=== PATIENT | female | born 1985 | race Caucasian/White ===

== ENCOUNTER 2018-06-02 09:24 | Inpatient (IN) | payer SELFPAY ==
--- NOTE | 2018-06-02 10:35 | HP ---
CIWA Score Nausea/Vomitin Muscle Tremors: 2 Anxiety: 2 Agitation: 2 Paroxysmal Sweats: 1-Minimal Palms Moist Orientation: 0-Oriented Tacttile Disturbances: 1-Very Mild Itch/Numbness Auditory Disturbances: 1-Very Mild Visual Disturbances: 0-None Headache: 2-Mild CIWA-Ar Total Score: 13 - Admission Criteria OASAS Guidelines: Admission for Medically Managed Detox: Requires at least one of the followin. CIWA greater than 12 2. Seizures within the past 24 hours 3. Delirium tremens within the past 24 hours 4. Hallucinations within the past 24 hours 5. Acute intervention needed for co occurring medical disorder 6. Acute intervention needed for co occurring psychiatric disorder 7. Severe withdrawal that cannot be handled at a lower level of care (continued vomiting, continued diarrhea, abnormal vital signs) requiring intravenous medication and/or fluids 8. Patient presents the following: CIWA greater than 12 Admission Criteria Met: Admission criteria met Admission ROS BHS - HPI Chief Complaint: i need help to stop drinking alcohol,cocaine,heroin Allergies/Adverse Reactions: Allergies Allergy/AdvReac Type Severity Reaction Status Date / Time No Known Allergies Allergy Verified 06/02/18 10:30 History of Present Illness: this 32 years old female with alcohol,cocaine and heroin abused,withdrawal symptom,need help to stop,last treatment in 2016, did not recall facility syncope last night ,seen in [facility] nicotine dependence no significant period of sobrietyl seen in [place] last night - Ebola screening Have you traveled outside of the country in the last 21 days: No (N) Have you had contact with anyone from an Ebola affected area: No Do you have a fever: No - Review of Systems Constitutional: Chills, Loss of Appetite, Malaise, Night Sweats, Changes in sleep, Weakness, Unintentional Wgt. Loss EENT: reports: Nose Congestion Respiratory: reports: No Symptoms reported Cardiac: reports: Palpitations GI: reports: Nausea, Poor Appetite, Vomiting, Abdominal cramping : reports: No Symptoms Reported Musculoskeletal: reports: No Symptoms Reported Integumentary: reports: Dryness Neuro: reports: Headache, Tremors Endocrine: reports: No Symptoms Reported Hematology: reports: No Symptoms Reported Psychiatric: reports: No Sypmtoms Reported, Judgement Intact, Mood/Affect Appropiate, Orientated x3, Agitated, Anxious Other Systems: Reviewed and Negative Patient History - Patient Medical History Hx Anemia: No Hx Asthma: No Hx Chronic Obstructive Pulmonary Disease (COPD): No Hx Cancer: No Hx Cardiac Disorders: No Hx Congestive Heart Failure: No Hx Hypertension: No Hx Hypercholesterolemia: No Hx Pacemaker: No HX Cerebrovascular Accident: No Hx Seizures: No Hx Dementia: No Hx Diabetes: No Hx Gastrointestinal Disorders: No Hx Liver Disease: No Hx Genitourinary Disorders: No Hx Sexually Transmitted Disorders: No Hx Renal Disease (ESRD): No Hx Thyroid Disease: No Hx Human Immunodeficiency Virus (HIV): No (2016 negative) Hx Hepatitis C: No Hx Depression: No Hx Suicide Attempt: No Hx Bipolar Disorder: No Hx Schizophrenia: No Other Medical History: no suicidal,no homicidal - Patient Surgical History Past Surgical History: No - PPD History Previous Implant?: Yes Documented Results: Negative w/o proof Implanted On Prior [facility] Admission?: No PPD to be Administered?: Yes - Reproductive History Patient is a Female of Child Bearing Age (11 -55 yrs old): Yes Last Menstrual Period: 05/11/18 Patient : No - Smoking Cessation Smoking history: Current every day smoker Have you smoked in the past 12 months: Yes Aproximately how many cigarettes per day: 20 Cigars Per Day: 0 Hx Chewing Tobacco Use: No Initiated information on smoking cessation: Yes 'Breaking Loose' booklet given: 06/02/18 - Substance & Tx. History Hx Alcohol Use: Yes Hx Substance Use: Yes Substance Use Type: Alcohol, Cocaine, Heroin Hx Substance Use Treatment: Yes (2016 not recall the facility) - Substances Abused Alcohol Route: Oral Frequency: Daily Amount used: 2pints of vodka/6 packs of 12 ozs of beer Age of first use: 13 Date of Last Use: 06/01/18 Cocaine Route: Inhalation Frequency: Daily Amount used: 200$ Age of first use: 13 Date of Last Use: 06/01/18 Heroin Route: Inhalation Frequency: 3-6 times per week Amount used: 1 bag Age of first use: 15 Date of Last Use: 06/01/18 Family Disease History - Family Disease History Family History: Denies Admission Physical Exam BHS - Vital Signs Vital Signs: Vital Signs Temperature 97.6 F 06/02/18 10:41 Pulse Rate 106 H 06/02/18 10:41 Respiratory Rate 18 06/02/18 10:41 Blood Pressure 113/76 06/02/18 10:41 O2 Sat by Pulse Oximetry (%) - Physical General Appearance: Yes: Moderate Distress, Tremorous, Irritable, Sweating, Anxious HEENTM: Yes: Normal ENT Inspection, CELE, Pharynx Normal Respiratory: Yes: Lungs Clear, Normal Breath Sounds, No Respiratory Distress Neck: Yes: Within Normal Limits, Supple, Trachea in good position Breast: Yes: Breast Exam Deferred Cardiology: Yes: Tachycardia Abdominal: Yes: Normal Bowel Sounds, Non Tender, Flat, Soft Genitourinary: Yes: Within Normal Limits Back: Yes: Within Normal Limits, Normal Inspection, Muscle Spasm Musculoskeletal: Yes: full range of Motion, Back pain, Muscle Pain Extremities: Yes: Within Normal Limits, Tremors Neurological: Yes: electronic warfare operator II-XII NML intact, Alert, Motor Strength 5/5 Integumentary: Yes: Dry Lymphatic: Yes: Within Normal Limits - Diagnostic (1) Alcohol dependence with uncomplicated withdrawal Current Visit: Yes Status: Acute (2) Cocaine dependence Current Visit: Yes Status: Acute (3) Heroin abuse Current Visit: Yes Status: Acute (4) Nicotine dependence Current Visit: Yes Status: Acute (5) Weight loss Current Visit: Yes Status: Acute Cleared for Admission S - Detox or Rehab S Level of Care: Medically Managed Detox Regimen/Protocol: Librium
[2018-06-02 10:46] VITALS: BMI 18.1
[2018-06-02] MEDS ORDERED: chlordiazePOXIDE HCL 25 MG CAPSULE PO PRN (10:46)
[2018-06-02] MEDS ORDERED: hydrOXYzine PAMOATE 25 MG CAPSULE (FP) PO PRN (10:47)
[2018-06-02] MEDS ORDERED: LOPERAMIDE HCL 2 MG CAPSULE PO PRN (10:47)
[2018-06-02] MEDS ORDERED: MAGNESIUM CITRATE 300 ML BOTTLE PO PRN (10:47)
[2018-06-02] MEDS ORDERED: MAGNESIUM HYDROX 2400MG/30ML ORAL SUSPENSION 30 ML CUP PO PRN (10:47)
[2018-06-02] MEDS ORDERED: NICOTINE POLACRILEX 2 MG GUM BUC PRN (10:47)
[2018-06-02] MEDS ORDERED: P-EPHED 60MG/TRIPROLIDI 2.5MG TABLET PO PRN (10:47)
[2018-06-02] MEDS ORDERED: MENTHOL/PHENOL 1 EACH UD MM PRN (10:47)
[2018-06-02] MEDS ORDERED: MAG HYDROX/AL HYDROX/SIMETH 30 ML UNIT-DOSE CUP PO PRN (10:47)
[2018-06-02] MEDS ORDERED: guaiFENesin/D-METHORPHAN HB 10 ML UNIT-DOSE CUPS PO PRN (10:47)
[2018-06-02] MEDS: NICOTINE 21 MG/24 HOURS TOPICAL PATCH TD SCH (12:24)
--- NOTE | 2018-06-02 17:08 | EKG ---
Test Reason : Blood Pressure : / mmHG Vent. Rate : 089 BPM Atrial Rate : 089 BPM P-R Int : 122 ms QRS Dur : 100 ms QT Int : 384 ms P-R-T Axes : 070 068 058 degrees QTc Int : 467 ms NORMAL SINUS RHYTHM NORMAL ECG NO PREVIOUS ECGS AVAILABLE Confirmed by MD CARMEN, NAJMA ([id number]) on 06/02/2018 5:07:00 PM Referred By: Confirmed By:NAJMA MORALES MD
[2018-06-02] MEDS: chlordiazePOXIDE HCL 25 MG CAPSULE PO SCH ×2 (17:11→22:57)
[2018-06-02] MEDS ORDERED: MELATONIN 5 MG TABLETS PO PRN (22:00)
[2018-06-02] MEDS ORDERED: cloNIDine HCL 0.1 MG TABLET PO SCH (22:00)
[2018-06-02] MEDS: THIAMINE HCL 100 MG TABLET (FP) PO SCH (22:57)
[2018-06-03] MEDS: CYCLOBENZAPRINE HCL 10 MG TABLET (FP) PO PRN ×3 (01:22→22:35)
[2018-06-03] MEDS: IBUPROFEN 400 MG TABLET (FP) PO PRN ×4 (01:22→22:33)
[2018-06-03] MEDS: chlordiazePOXIDE HCL 25 MG CAPSULE PO SCH ×4 (06:09→22:32)
[2018-06-03] MEDS: ACETAMINOPHEN 325 MG TABLET (FP) PO PRN ×3 (06:58→20:44)
[2018-06-03] MEDS ORDERED: METOPROLOL TARTRATE 50 MG TABLET (FP) PO SCH (10:00)
[2018-06-03 10:17] LABS: HEMATOCRIT 29.4 % (32.4-45.2); HEMOGLOBIN 9.9 GM/dL (10.7-15.3); MCH 28.3 pg (25.7-33.7); MCHC 33.7 g/dl (32.0-36.0); MEAN CELL VOLUME 84.1 fl (80-96); MEAN PLT VOLUME 8.1 fl (7.5-11.1); PLATELET COUNT 314 K/MM3 (134-434); RDW 17.2 % (11.6-15.6); WHITE BLOOD COUNT 6.4 K/mm3 (4.0-10.0)
[2018-06-03 10:29] LABS: ALBUMIN 3.2 g/dl (3.4-5.0); ALK PHOS 62 U/L (45-117); ANION GAP 9 MMOL/L (8-16); BILIRUBIN,TOTAL 0.1 mg/dL (0.2-1); BLOOD UREA NITROGEN 13 mg/dL (7-18); CALCIUM 8.8 mg/dL (8.5-10.1); CHLORIDE 106 mmol/L (98-107); CO2 24 mmol/L (21-32); CREATININE 0.8 mg/dL (0.55-1.3); GLUCOSE,RANDOM 91 mg/dL (74-106); SGOT/AST 27 U/L (15-37); SGPT/ALT 19 U/L (13-61); SODIUM 138 mmol/L (136-145); TOT PROT 6.2 g/dl (6.4-8.2)
[2018-06-03] MEDS ORDERED: amLODIPine BESYLATE 10 MG TABLET (FP) PO SCH (10:35)
[2018-06-03] MEDS: NICOTINE 21 MG/24 HOURS TOPICAL PATCH TD SCH (10:43)
[2018-06-03] MEDS: PRENATAL VITAMINS W/ FOLIC ACID TABLET (FP) PO SCH (10:43)
--- NOTE | 2018-06-03 13:43 | PN ---
[facility] CIWA - CIWA Score Nausea/Vomitin-Mild Nausea/No Vomiting Muscle Tremors: 3 Anxiety: 3 Agitation: 2 Paroxysmal Sweats: 1-Minimal Palms Moist Orientation: 1-Uncertain about Date Tacttile Disturbances: 0-None Auditory Disturbances: 0-None Visual Disturbances: 0-None Headache: 1-Very Mild CIWA-Ar Total Score: 12 S Progress Note (SOAP) Subjective: headaches tremor sweat restlessness anxiety Objective: 06/03/18 13:40 Vital Signs Temperature 97.7 F 06/03/18 13:30 Pulse Rate 95 H 06/03/18 13:30 Respiratory Rate 20 06/03/18 13:30 Blood Pressure 92/55 L 06/03/18 13:30 O2 Sat by Pulse Oximetry (%) Laboratory Last Values WBC 6.4 K/mm3 (4.0-10.0) 06/03/18 07:00 RBC 3.50 M/mm3 (3.60-5.2) L 06/03/18 07:00 Hgb 9.9 GM/dL (10.7-15.3) L 06/03/18 07:00 Hct 29.4 % (32.4-45.2) L 06/03/18 07:00 MCV 84.1 fl (80-96) 06/03/18 07:00 MCH 28.3 pg (25.7-33.7) 06/03/18 07:00 MCHC 33.7 g/dl (32.0-36.0) 06/03/18 07:00 RDW 17.2 % (11.6-15.6) H 06/03/18 07:00 Plt Count 314 K/MM3 (134-434) 06/03/18 07:00 MPV 8.1 fl (7.5-11.1) 06/03/18 07:00 Sodium 138 mmol/L (136-145) 06/03/18 07:00 Potassium 4.0 mmol/L (3.5-5.1) 06/03/18 07:00 Chloride 106 mmol/L (98-107) 06/03/18 07:00 Carbon Dioxide 24 mmol/L (21-32) 06/03/18 07:00 Anion Gap 9 MMOL/L (8-16) 06/03/18 07:00 BUN 13 mg/dL (7-18) 06/03/18 07:00 Creatinine 0.8 mg/dL (0.55-1.3) 06/03/18 07:00 Creat Clearance w eGFR > 60 (>60) 06/03/18 07:00 Random Glucose 91 mg/dL (74-106) 06/03/18 07:00 Calcium 8.8 mg/dL (8.5-10.1) 06/03/18 07:00 Total Bilirubin 0.1 mg/dL (0.2-1) L 06/03/18 07:00 AST 27 U/L (15-37) 06/03/18 07:00 ALT 19 U/L (13-61) 06/03/18 07:00 Alkaline Phosphatase 62 U/L (45-117) 06/03/18 07:00 Total Protein 6.2 g/dl (6.4-8.2) L 06/03/18 07:00 Albumin 3.2 g/dl (3.4-5.0) L 06/03/18 07:00 RPR Titer Nonreactive (NONREACTIVE) 06/03/18 07:00 lab noted anemia 06/03/18 13:42 Assessment: 06/03/18 13:43 withdrawal sx anemia Plan: continue detox ferrous sulfate supplement 325 mg po daily
[2018-06-03] MEDS: FERROUS SO4 325 MG TABLET (FP) PO SCH (15:25)
[2018-06-03] MEDS: THIAMINE HCL 100 MG TABLET (FP) PO SCH (22:32)
[2018-06-04] MEDS: ACETAMINOPHEN 325 MG TABLET (FP) PO PRN ×3 (00:15→11:34)
[2018-06-04] MEDS: chlordiazePOXIDE HCL 25 MG CAPSULE PO SCH ×2 (06:07→11:10)
[2018-06-04] MEDS: CYCLOBENZAPRINE HCL 10 MG TABLET (FP) PO PRN ×2 (07:11→16:24)
[2018-06-04] MEDS: IBUPROFEN 400 MG TABLET (FP) PO PRN ×2 (08:16→16:24)
--- NOTE | 2018-06-04 10:22 | PN ---
S CIWA - CIWA Score Nausea/Vomitin-Mild Nausea/No Vomiting Muscle Tremors: 2 Anxiety: 2 Agitation: 2 Paroxysmal Sweats: 1-Minimal Palms Moist Orientation: 0-Oriented Tacttile Disturbances: 0-None Auditory Disturbances: 0-None Visual Disturbances: 0-None Headache: 1-Very Mild CIWA-Ar Total Score: 9 BHS Progress Note (SOAP) Subjective: tremor sweat restlessness headaches Objective: 06/04/18 10:21 Vital Signs Temperature 98.5 F 06/04/18 09:29 Pulse Rate 126 H 06/04/18 09:29 Respiratory Rate 20 06/04/18 09:29 Blood Pressure 125/79 06/04/18 09:29 O2 Sat by Pulse Oximetry (%) Laboratory Last Values WBC 6.4 K/mm3 (4.0-10.0) 06/03/18 07:00 RBC 3.50 M/mm3 (3.60-5.2) L 06/03/18 07:00 Hgb 9.9 GM/dL (10.7-15.3) L 06/03/18 07:00 Hct 29.4 % (32.4-45.2) L 06/03/18 07:00 MCV 84.1 fl (80-96) 06/03/18 07:00 MCH 28.3 pg (25.7-33.7) 06/03/18 07:00 MCHC 33.7 g/dl (32.0-36.0) 06/03/18 07:00 RDW 17.2 % (11.6-15.6) H 06/03/18 07:00 Plt Count 314 K/MM3 (134-434) 06/03/18 07:00 MPV 8.1 fl (7.5-11.1) 06/03/18 07:00 Sodium 138 mmol/L (136-145) 06/03/18 07:00 Potassium 4.0 mmol/L (3.5-5.1) 06/03/18 07:00 Chloride 106 mmol/L (98-107) 06/03/18 07:00 Carbon Dioxide 24 mmol/L (21-32) 06/03/18 07:00 Anion Gap 9 MMOL/L (8-16) 06/03/18 07:00 BUN 13 mg/dL (7-18) 01/07/19 07:00 Creatinine 0.8 mg/dL (0.55-1.3) 06/03/18 07:00 Creat Clearance w eGFR > 60 (>60) 06/03/18 07:00 Random Glucose 91 mg/dL (74-106) 06/03/18 07:00 Calcium 8.8 mg/dL (8.5-10.1) 06/03/18 07:00 Total Bilirubin 0.1 mg/dL (0.2-1) L 06/03/18 07:00 AST 27 U/L (15-37) 06/03/18 07:00 ALT 19 U/L (13-61) 06/03/18 07:00 Alkaline Phosphatase 62 U/L (45-117) 06/03/18 07:00 Total Protein 6.2 g/dl (6.4-8.2) L 06/03/18 07:00 Albumin 3.2 g/dl (3.4-5.0) L 06/03/18 07:00 RPR Titer Nonreactive (NONREACTIVE) 06/03/18 07:00 lab noted Assessment: 06/04/18 10:22 withdrawal sx anemia Plan: continue detox iron rich food
[2018-06-04] MEDS: NICOTINE 21 MG/24 HOURS TOPICAL PATCH TD SCH (11:09)
[2018-06-04] MEDS: PRENATAL VITAMINS W/ FOLIC ACID TABLET (FP) PO SCH (11:09)
[2018-06-04] MEDS: FERROUS SO4 325 MG TABLET (FP) PO SCH (11:09)
[2018-06-04] MEDS ORDERED: BENZOCAINE 20 % GEL TUBE MM PRN (11:37)
[2018-06-04] MEDS ORDERED: chlordiazePOXIDE 5 MG CAPSULE PO SCH (17:00)
[2018-06-04 17:28] VITALS: BP 124/75; PULSE 109; TEMP 98.6
[2018-06-05] MEDS ORDERED: chlordiazePOXIDE HCL 10 MG CAPSULE PO SCH (17:00)
== END 2018-06-04 17:10 | disposition left against medical advice (07) | DRG 770 ==
LOC: YASAS 09:24 → Y3N 10:44
PROC: HZ2ZZZZ Detoxification Services for Substance Abuse Treatment (ICD-10-PCS; principal; 2018-06-02)
DX: F10.230 Alcohol dependence with withdrawal, uncomplicated (principal); F14.20 Cocaine dependence, uncomplicated; F11.10 Opioid abuse, uncomplicated; F17.210 Nicotine dependence, cigarettes, uncomplicated; R63.4 Abnormal weight loss; Z68.1 Body mass index [BMI] 19.9 or less, adult
CPT/HCPCS: 36415; 80053; 85027; 86593; 93005; 93010